=== PATIENT | female | born 1940 | race Caucasian/White ===

== ENCOUNTER → 2019-04-11 12:43 | Outpatient (CLI) | payer MEDICARE, SELFPAY ==
[2014-04-08 06:14] VITALS: BMI 52.0
--- NOTE | 2019-04-11 12:47 | CDU_ITS ---
Reason For Study: carotid stenosis Rt. Velocities/BP Lt. Velocities/BP Prox CCA 79.9/14.7 cm/sec. Prox CCA 96.1/16.0 cm/sec. Mid CCA 104.7/19.9 cm/sec. Mid CCA 87.4/14.9 cm/sec. Dist CCA 106.0/10.8 cm/sec. Dist CCA 79.7/13.8 cm/sec. Prox ICA 64.3/14.7 cm/sec. Prox ICA 85.1/17.5 cm/sec. Mid ICA 96.9/20.0 cm/sec. Mid ICA 70.8/15.5 cm/sec. Dist ICA 59.1/13.4 cm/sec. Dist ICA 161.8/30.3 cm/sec. Rt. ICA/CCA = .9. Lt. ICA/CCA = 1.9. Prox ECA 96.9 cm/sec. Prox ECA 103.9 cm/sec. Rt. Vert. 74.7/16.0 cm/sec. Lt. Vert. 43.1/15.7 cm/sec. Right Extracranial There is intimal thickening but no significant atherosclerotic plaque noted in the right common carotid artery. There is intimal thickening but no significant atherosclerotic plaque noted in the right internal carotid artery. There is intimal thickening but no significant atherosclerotic plaque noted in the right external carotid artery. Antegrade flow is noted in the right vertebral artery. Left Extracranial There is intimal thickening but no significant atherosclerotic plaque noted in the left common carotid artery. There is homogeneous, smooth atherosclerotic plaque noted in the left internal carotid artery. The left internal carotid artery is very tortuous. There is homogeneous, smooth atherosclerotic plaque noted in the left external carotid artery. Antegrade flow is noted in the left vertebral artery. Procedure Carotid Duplex 35452. The exam was diagnostic. Exam performed in department. Interpretation Summary No hemodynamically significant plague right internal carotid <50% stenosis right internal carotid <50% stenosis right external carotid Minimal smooth plague tortuous left internal carotid 50-69% stenosis distal left internal carotid but this may be over estimated secondary to tortuosity. <50% stenosis left external carotid Patent, antegrade, <50% stenosis bilateral vertebral Ordering Physician: Demetri Nino Performed By: Tony Rawls RVT
== END ==
PROVIDERS: Family Provider Family Medicine; PCP Family Medicine; Referring Provider Surgery; Visit Provider Surgery
DX: I65.23 Occlusion and stenosis of bilateral carotid arteries (principal)
CPT/HCPCS: 93880

== ENCOUNTER → 2020-03-26 12:35 | Outpatient (CLI) | payer MEDICARE, SELFPAY ==
[2020-01-21 10:34] VITALS: BMI 52.0
--- NOTE | 2020-03-26 12:36 | CDU_ITS ---
Reason For Study: carotid stenosis Rt. Velocities/BP Lt. Velocities/BP Prox CCA 94.3/12.1 cm/sec. Prox CCA 93.0/17.3 cm/sec. Mid CCA 90.3/13.4 cm/sec. Mid CCA 90.3/10.8 cm/sec. Dist CCA 87.7/10.8 cm/sec. Dist CCA 83.8/14.7 cm/sec. Prox ICA 79.9/9.5 cm/sec. Prox ICA 74.7/17.3 cm/sec. Mid ICA 65.6/14.7 cm/sec. Mid ICA 152.6/30.0 cm/sec. Dist ICA 68.2/22.6 cm/sec. Dist ICA 135.7/20.6 cm/sec. Rt. ICA/CCA = .9. Lt. ICA/CCA = 1.7. Prox ECA 102.1/5.6 cm/sec. Prox ECA 74.7 cm/sec. Rt. Vert. 72.1/12.1 cm/sec. Lt. Vert. 49.8/10.2 cm/sec. Right Extracranial There is intimal thickening but no significant atherosclerotic plaque noted in the right common carotid artery. There is intimal thickening but no significant atherosclerotic plaque noted in the right internal carotid artery. There is intimal thickening but no significant atherosclerotic plaque noted in the right external carotid artery. Antegrade flow is noted in the right vertebral artery. Left Extracranial There is intimal thickening but no significant atherosclerotic plaque noted in the left common carotid artery. There is heterogeneous, irregular atherosclerotic plaque noted in the left internal carotid artery. The left internal carotid artery is very tortuous. There is homogeneous, smooth atherosclerotic plaque noted in the left external carotid artery. Antegrade flow is noted in the left vertebral artery. Procedure Carotid Duplex [id number]. The exam was diagnostic. Exam performed in department. Interpretation Summary No hemodynamically significant plague right internal carotid <50% stenosis right internal carotid <50% stenosis right external carotid Irregular plague, tortuous left internal carotid 50-69% stenosis left internal carotid but this may be over estimated secondary to tortuosity. <50% stenosis left external carotid Patent, antegrade, <50% stenosis bilateral vertebral No significant change from 04/11/19. Ordering Physician: Demetri Nino Performed By: Tony Rawls RVT
== END ==
PROVIDERS: PCP Family Medicine; Referring Provider Surgery; Visit Provider Surgery
DX: I65.21 Occlusion and stenosis of right carotid artery (principal)
CPT/HCPCS: 93880

== ENCOUNTER → 2021-04-20 10:20 | Outpatient (CLI) | payer MEDICARE, SELFPAY ==
--- NOTE | 2021-04-20 10:25 | CDU_ITS ---
Reason For Study: Bilateral carotid stenosis Rt. Velocities/BP Lt. Velocities/BP Prox CCA 76/12.1 cm/sec. Prox CCA 79.5/10.2 cm/sec. Mid CCA 86.5/10.8 cm/sec. Mid CCA 75/11.3 cm/sec. Dist CCA 83.9/8.2 cm/sec. Dist CCA 66.2/10.2 cm/sec. Prox ICA 67.4/10.2 cm/sec. Prox ICA 80.6/10.2 cm/sec. Mid ICA 55.3/12.4 cm/sec. Mid ICA 136.5/19.7 cm/sec. Dist ICA 54.2/11.3 cm/sec. Dist ICA 92.9/11.6 cm/sec. Rt. ICA/CCA = 0.80. Lt. ICA/CCA = 1.82. Prox ECA 93/8.2 cm/sec. Prox ECA 122/7.7 cm/sec. Rt. Vert. 55.3/11.3 cm/sec. Lt. Vert. 43.7/9.7 cm/sec. Right Extracranial There is intimal thickening but no significant atherosclerotic plaque noted in the right common carotid artery. There is intimal thickening but no significant atherosclerotic plaque noted in the right internal carotid artery. There is intimal thickening but no significant atherosclerotic plaque noted in the right external carotid artery. Antegrade flow is noted in the right vertebral artery. Left Extracranial There is intimal thickening but no significant atherosclerotic plaque noted in the left common carotid artery. There is heterogeneous, irregular atherosclerotic plaque noted in the left internal carotid artery. The left internal carotid artery is very tortuous. There is homogeneous, smooth atherosclerotic plaque noted in the left external carotid artery. Antegrade flow is noted in the left vertebral artery. Procedure Carotid Duplex [id number]. This is a Carotid Duplex examination using B-mode, color flow and specral Doppler. Exam performed in department. VL/Carotid Duplex Ultrasound Interpretation Summary Intimal thickening of the right carotid bulb and proximal internal carotid sada ry with less than 50% stenosis Less than 50% stenosis right external carotid artery Irregular plaque at the proximal left internal carotid artery with significant tortuosity of the left internal carotid artery. Peak systolic velocity maximal within the left mi d internal carotid artery at 136 cm second peak systolic flow consistent with 50 to 69% stenosis b ut this may be an overestimation based upon the tortuosity of the vessel. Less than 50% stenosis left external carotid artery Patent antegrade vertebral arteries bilaterally Findings appear similar to the previous examination of March 26, 2020 Ordering Physician: Demetri Nino Performed By: Aurea Timmons RVT
== END ==
PROVIDERS: Referring Provider Surgery; Visit Provider Surgery
DX: I65.23 Occlusion and stenosis of bilateral carotid arteries (principal)
CPT/HCPCS: 93880

== ENCOUNTER → 2022-09-20 | Outpatient (CLI) | payer MEDICARE, SELFPAY ==
--- NOTE | 2022-09-20 14:27 | CDU_ITS ---
Reason For Study: carotid stenosis Rt. Velocities/BP Lt. Velocities/BP Prox CCA 66.4/6.9 cm/sec. Prox CCA 97.4/10.2 cm/sec. Mid CCA 81.5/7.8 cm/sec. Mid CCA 71.6/9.0 cm/sec. Dist CCA 63.6/8.8 cm/sec. Dist CCA 75.3/9.0 cm/sec. Prox ICA 93.7/6.5 cm/sec. Prox ICA 106.5/7.9 cm/sec. Mid ICA 67.9/13.9 cm/sec. Mid ICA 163.1/27.9 cm/sec. Dist ICA 53.2/11.4 cm/sec. Dist ICA 104.7/18.8 cm/sec. Rt. ICA/CCA = 1.1. Lt. ICA/CCA = 2.3. Prox ECA 106.0/4.1 cm/sec. Prox ECA 110.1 cm/sec. Rt. Vert. 64.2/11.4 cm/sec. Lt. Vert. 33.5/10.2 cm/sec. Right Extracranial There is intimal thickening but no significant atherosclerotic plaque noted in the right common carotid artery. There is intimal thickening but no significant atherosclerotic plaque noted in the right internal carotid artery. There is intimal thickening but no significant atherosclerotic plaque noted in the right external carotid artery. Antegrade flow is noted in the right vertebral artery. Left Extracranial There is intimal thickening but no significant atherosclerotic plaque noted in the left common carotid artery. There is heterogeneous, irregular atherosclerotic plaque noted in the left internal carotid artery. The left internal carotid artery is very tortuous. There is intimal thickening but no significant atherosclerotic plaque noted in the left external carotid artery. Antegrade flow is noted in the left vertebral artery. Procedure Carotid Duplex [id number]. This is a Carotid Duplex examination using B-mode, color flow and specral Doppler. The exam was diagnostic. Exam performed in department. VL/Carotid Duplex Ultrasound Interpretation Summary Intimal thickening of the right carotid bulb and proximal internal carotid sada ry with less than 50% stenosis Less than 50% stenosis right external carotid artery Mild irregular plaque at the proximal left internal carotid artery with signifi cant tortuosity of the left internal carotid artery and slight velocity elevation within that area of tortuosity consistent with 50 to 69% stenosis however this may be over estimation secondar y to the tortuosity Less than 50% stenosis left external carotid artery Patent and antegrade vertebral arteries bilaterally Findings appear to be similar to the previous examination of April 20, 2021 Ordering Physician: Demetri Nino Performed By: Tony Rawls RVT
== END | disposition home or self-care (01) ==
LOC: CVS 14:26
PROVIDERS: PCP Physician Assistant; Referring Provider Surgery; Visit Provider Surgery
DX: I65.21 Occlusion and stenosis of right carotid artery (principal)
CPT/HCPCS: 93880